=== PATIENT | female | born 1960 | race Asian ===

== ENCOUNTER 2018-07-31 16:13 | Emergency (ER) | payer MEDICAID ==
[~2018-07-31] VITALS: Ht 160 cm; Wt 70.8 kg
[2018-07-31 16:46] VITALS: Ht 160 cm; Wt 70.8 kg
[2018-07-31 21:15] VITALS: BP 175/92
== END 2018-07-31 21:15 | disposition home or self-care (01) ==
LOC: ED 16:13
DX: J02.9 Acute pharyngitis, unspecified (principal); I10 Essential (primary) hypertension